=== PATIENT | male | born 1995 ===

== ENCOUNTER 2020-04-05 01:37 | Inpatient (IN) | payer MEDICAID ==
[~2020-04-05] VITALS: Ht 154.9 cm; Wt 86.0 kg
[2020-04-05] MEDS ORDERED: MYCO500T PO (01:57)
[2020-04-05] MEDS ORDERED: CLON1PAT2 PO (01:58)
[2020-04-05] MEDS ORDERED: LEVO50CA4 PO (01:59)
[2020-04-05] MEDS ORDERED: ESCI5TAB7 PO (02:00)
[2020-04-05] MEDS ORDERED: SODIUM CHLORIDE FLUSH 10ML SYR IVF ONE (02:00)
[2020-04-05] MEDS ORDERED: MIRT-34 PO (02:01)
[2020-04-05] MEDS ORDERED: METO25TA4 PO (02:01)
[2020-04-05] MEDS ORDERED: ESOM40SU PO (02:02)
[2020-04-05] MEDS ORDERED: [UNRECOGNIZED DRUG - CODE] PO (02:03)
--- NOTE | 2020-04-05 02:05 | NUR ---
PT FROM [facility] BY HELICOPTER, PT HAD GONE TO ER WITH C/O WEAKNESS AND FEVER X 1 DAY, PT HAS 20 G TO RIGHT AC WITH VANCO 2 GM AND HAD ROCEPHIN IN [facility] ER AND 1 L NS AND 1 L LR, PT ALSO HAD TYLENOL THERE.
[2020-04-05 02:25] LABS: MD YES; MEAN CORPUSCULAR HEMOGLOBIN 23.7 pg (27.5-34.5); MEAN CORPUSCULAR HGB CONC 30.5 g/dL (33.2-36.2); MEAN PLATELET VOLUME 9.9 fL (7.4-10.4); PLATELET COUNT 403 x10^3/uL (130-400); RED BLOOD COUNT 3.15 x10^6/uL (4.38-5.82); RED CELL DISTRIBUTION WIDTH 18.3 % (9.4-14.8)
[2020-04-05 02:33] LABS: ALANINE AMINOTRANSFERASE 46 U/L (12-78); ALBUMIN 3.1 g/dL (3.4-5.0); ANION GAP 10 mmol/L (5-15); CALCIUM 6.8 mg/dL (8.5-10.1); CHLORIDE 114 mmol/L (98-107); CREATININE 8.45 mg/dL (0.7-1.3)
[2020-04-05 02:35] LABS: ALKALINE PHOSPHATASE 348 U/L (45-117); BILIRUBIN,TOTAL 0.5 mg/dL (0.2-1.0)
[2020-04-05 02:44] LABS: MICROSCOPIC AUTO
[2020-04-05 02:47] LABS: ANISOCYTOSIS 1+; BAND#(MANUAL) 1.12 x10^3/uL; BANDS%(MANUAL) 5 % (0-7); EOS#(MANUAL) 0.22 x10^3/uL (0.0-0.4); EOS% (MANUAL) 1 % (1-7); LYMPH#(MANUAL) 0.67 x10^3/uL (1-3.4); LYMPHS% (MANUAL) 3 % (22-44); MONOS#(MANUAL) 0.45 x10^3/uL (0.3-2.7); MONOS% (MANUAL) 2 % (2-9); SEG#(MANUAL) 19.85 x10^3/uL (1.8-6.8); SEGS% (MANUAL) 89 % (42-75)
[2020-04-05 02:48] LABS: HYPOCHROMIA 1+; MICROCYTOSIS 1+; OVALOCYTES 1+
[2020-04-05 02:49] LABS: <PLATELET ESTIMATE> ADEQUATE; LARGE PLATELETS 1+
--- NOTE | 2020-04-05 03:00 | NUR ---
PT RESTING IN NAD
[2020-04-05] MEDS ORDERED: SODIUM CHLORIDE 0.9% 1,000 ML IV ONE (03:30)
--- NOTE | 2020-04-05 04:24 | NUR ---
REPORT TO ALDA PT TO FLOOR WITH TECH
[2020-04-05] MEDS ORDERED: LACTATED RINGERS 1,000 ML IV SCH (04:30)
[2020-04-05] MEDS ORDERED: PHARMACY MAY ADJ FOR RENAL FX MC PRN (04:30)
[2020-04-05] MEDS ORDERED: hydrALAzine 20 MG/ML, 1ML IVPush PRN (04:30)
[2020-04-05] MEDS ORDERED: DIPHENHYDRAMINE 25 MG CAPSULE PO PRN (04:30)
[2020-04-05] MEDS ORDERED: VANCOMYCIN PER PHARMACY MC PRN (04:30)
[2020-04-05] MEDS ORDERED: PHARMACOKINETIC CONSULTATION MC ONE (05:00)
[2020-04-05] MEDS: CLONIDINE MC SCH ×3 (05:00→21:00)
[2020-04-05] MEDS ORDERED: VANCOMYCIN 1,700 MG in SODIUM CHLORIDE 0.9% 250 ML IV ONE (05:00)
[2020-04-05] MEDS ORDERED: PHARMACOKINETIC MONITORING MC PRN (05:00)
[2020-04-05] MEDS: HEPARIN 5,000 UNITS/ML, 1ML SQ SCH ×3 (05:20→20:25)
[2020-04-05] MEDS: PIPERACILLIN/TAZO/PMX 2.25GM 50 ML IV SCH ×4 (05:22→23:57)
[2020-04-05 05:43] LABS: CHOL/HDL RATIO 4.7; CHOLESTEROL, TOTAL 151 mg/dL (140-239); HDL CHOL % 21 % (26-37); HDL CHOLESTEROL (DIRECT) 32 mg/dL (40-60); LDL CHOLESTEROL,CALCULATED 70 mg/dL (54-169); LDL/HDL RATIO 2.2 (0.5-3.0); TRIGLYCERIDES 244 mg/dL (50-200); TROPONIN I < 0.015 ng/mL (0.000-0.045); VLDL CHOLESTEROL 49 mg/dL (0-25)
[2020-04-05] MEDS ORDERED: CALCIUM GLUCONATE 9.2 MEQ in SODIUM CHLORIDE 0.9% 100 ML IV ONE (06:30)
[2020-04-05] MEDS ORDERED: MAGNESIUM SULFATE PMX 2GM/50ML 50 ML IV ONE (06:30)
[2020-04-05] MEDS: LACTATED RINGERS 1,000 ML IV SCH ×2 (06:37→14:17)
[2020-04-05 07:40] VITALS: BP 124/75
[2020-04-05 08:17] LABS: MICROSCOPIC AUTO
[2020-04-05] MEDS ORDERED: METOPROLOL TARTRATE 25 MG TAB PO SCH (09:00)
[2020-04-05] MEDS: PANTOPRAZOLE 40MG TABLET PO SCH (09:14)
[2020-04-05] MEDS: LEVOTHYROXINE 50 MCG TABLET PO SCH (09:14)
[2020-04-05] MEDS: ESCITALOPRAM 10MG TABLET PO SCH (09:15)
[2020-04-05] MEDS: MIRTAZAPINE 15 MG TABLET PO SCH (09:15)
[2020-04-05] MEDS: DIPHENHYDRAMINE 50 MG/ML, 1ML IVPush SCH ×3 (09:19→20:25)
[2020-04-05 10:56] LABS: TROPONIN I < 0.015 ng/mL (0.000-0.045)
[2020-04-05 12:20] VITALS: BP 129/75
[2020-04-05] MEDS: ARANESP 100 MCG/ML **ESRD SQ SCH (12:53)
[2020-04-05 13:37] LABS: RAPID INFLUENZA A Negative (Negative); RAPID INFLUENZA B Negative (Negative)
[2020-04-05 19:13] VITALS: BP 128/78
[2020-04-06] MEDS: LACTATED RINGERS 1,000 ML IV SCH ×2 (00:30→05:21)
[2020-04-06 02:24] VITALS: BP 124/73
[2020-04-06] MEDS: DIPHENHYDRAMINE 50 MG/ML, 1ML IVPush SCH ×4 (02:34→21:51)
[2020-04-06] MEDS: CLONIDINE MC SCH ×3 (05:00→11:21)
[2020-04-06] MEDS: HEPARIN 5,000 UNITS/ML, 1ML SQ SCH ×3 (05:18→21:53)
[2020-04-06] MEDS: PIPERACILLIN/TAZO/PMX 2.25GM 50 ML IV SCH ×4 (05:18→23:19)
[2020-04-06 05:59] LABS: MEAN CORPUSCULAR HEMOGLOBIN 24.1 pg (27.5-34.5); PLATELET COUNT 375 x10^3/uL (130-400); RED BLOOD COUNT 3.02 x10^6/uL (4.38-5.82); RED CELL DISTRIBUTION WIDTH 18.8 % (9.4-14.8)
[2020-04-06 06:14] LABS: ANION GAP 11 mmol/L (5-15); CALCIUM 8.3 mg/dL (8.5-10.1); CHLORIDE 115 mmol/L (98-107)
[2020-04-06 06:20] LABS: % IRON SATURATION 4 % (20-55); ALKALINE PHOSPHATASE 288 U/L (45-117); CREATININE 6.67 mg/dL (0.7-1.3); IRON LEVEL 19 mcg/dL (65-175); TOTAL IRON BINDING CAPACITY 441 mcg/dL (250-450)
[2020-04-06 06:37] LABS: MD YES
[2020-04-06 06:38] LABS: ANISOCYTOSIS 1+; BAND#(MANUAL) 0.28 x10^3/uL; BANDS%(MANUAL) 1 % (0-7); EOS% (MANUAL) 5 % (1-7); HYPOCHROMIA 1+; LYMPH#(MANUAL) 3.64 x10^3/uL (1-3.4); LYMPHS% (MANUAL) 13 % (22-44); MICROCYTOSIS 1+; MONOS#(MANUAL) 0.28 x10^3/uL (0.3-2.7); MONOS% (MANUAL) 1 % (2-9); PMNS WITH VACUOLES 1+; SEGS% (MANUAL) 80 % (42-75)
[2020-04-06 06:39] LABS: OVALOCYTES 1+; POLYCHROMASIA 1+
[2020-04-06 06:40] LABS: <PLATELET ESTIMATE> ADEQUATE; <PLT MORPHOLOGY> NORMAL PLT MORPH; ECHINOCYTES 1+
[2020-04-06 07:44] VITALS: BP 125/72
[2020-04-06] MEDS: ESCITALOPRAM 10MG TABLET PO SCH (08:37)
[2020-04-06] MEDS: PANTOPRAZOLE 40MG TABLET PO SCH (08:37)
[2020-04-06] MEDS: LEVOTHYROXINE 50 MCG TABLET PO SCH (08:37)
[2020-04-06] MEDS: METOPROLOL TARTRATE 25 MG TAB PO SCH ×2 (08:37→21:51)
[2020-04-06] MEDS: SODIUM BICARBONATE 650 MG TABLET PO SCH ×2 (08:37→21:52)
[2020-04-06] MEDS: IRON SUCROSE COMPLEX 100MG/5ML IV SCH (08:38)
[2020-04-06] MEDS: methylPREDNISolone SOD SUCC 40 MG/ML IV SCH ×3 (08:38→21:51)
[2020-04-06] MEDS: MIRTAZAPINE 15 MG TABLET PO SCH (08:38)
[2020-04-06] MEDS: GENTAMICIN CRM 0.1%, 30GM TP SCH ×2 (10:45→21:00)
[2020-04-06 13:40] VITALS: BP 118/71
[2020-04-06] MEDS ORDERED: CLON0.1T22 PO (14:36)
[2020-04-06 18:27] VITALS: BP 137/78
[2020-04-07 01:12] VITALS: BP 141/78
[2020-04-07] MEDS: PIPERACILLIN/TAZO/PMX 2.25GM 50 ML IV SCH ×6 (03:15→23:55)
[2020-04-07] MEDS: DIPHENHYDRAMINE 50 MG/ML, 1ML IVPush SCH ×5 (04:09→23:56)
[2020-04-07] MEDS: methylPREDNISolone SOD SUCC 40 MG/ML IV SCH ×5 (04:09→23:56)
[2020-04-07 05:34] LABS: ALBUMIN 3.1 g/dL (3.4-5.0); ANION GAP 9 mmol/L (5-15); CALCIUM 8.4 mg/dL (8.5-10.1); CHLORIDE 113 mmol/L (98-107); CREATININE 5.91 mg/dL (0.7-1.3)
[2020-04-07 05:38] LABS: MEAN PLATELET VOLUME 9.9 fL (7.4-10.4); PLATELET COUNT 434 x10^3/uL (130-400); RED BLOOD COUNT 2.97 x10^6/uL (4.38-5.82); RED CELL DISTRIBUTION WIDTH 18.5 % (9.4-14.8)
[2020-04-07] MEDS: HEPARIN 5,000 UNITS/ML, 1ML SQ SCH ×3 (06:00→23:56)
[2020-04-07 06:15] LABS: MD YES
[2020-04-07 06:17] LABS: ANISOCYTOSIS 1+; BANDS%(MANUAL) 2 % (0-7); EOS% (MANUAL) 1 % (1-7); LYMPH#(MANUAL) 2.77 x10^3/uL (1-3.4); LYMPHS% (MANUAL) 14 % (22-44); METAMYELOCYTES% (MANUAL) 1 % (0-1); MICROCYTOSIS 1+; MONOS#(MANUAL) 0.59 x10^3/uL (0.3-2.7); MONOS% (MANUAL) 3 % (2-9); OVALOCYTES 1+; POLYCHROMASIA 1+; SEG#(MANUAL) 15.64 x10^3/uL (1.8-6.8); SEGS% (MANUAL) 79 % (42-75)
[2020-04-07 06:18] LABS: <PLATELET ESTIMATE> INCREASED; LARGE PLATELETS 1+; SCHISTOCYTES 1+; SMUDGE CELLS 1+
[2020-04-07 07:33] VITALS: BP 125/73
[2020-04-07] MEDS: CALCITRIOL 0.25 MCG CAPSULE PO SCH (08:26)
[2020-04-07] MEDS: METOPROLOL TARTRATE 25 MG TAB PO SCH ×2 (08:26→23:55)
[2020-04-07] MEDS: SODIUM BICARBONATE 650 MG TABLET PO SCH ×2 (08:26→23:54)
[2020-04-07] MEDS: PANTOPRAZOLE 40MG TABLET PO SCH (08:26)
[2020-04-07] MEDS: MIRTAZAPINE 15 MG TABLET PO SCH (08:27)
[2020-04-07] MEDS: LEVOTHYROXINE 50 MCG TABLET PO SCH (08:27)
[2020-04-07] MEDS: IRON SUCROSE COMPLEX 100MG/5ML IV SCH (08:27)
[2020-04-07] MEDS: ESCITALOPRAM 10MG TABLET PO SCH (08:27)
[2020-04-07] MEDS: GENTAMICIN CRM 0.1%, 30GM TP SCH (08:28)
[2020-04-07 15:01] VITALS: BP 130/79
[2020-04-07 18:46] VITALS: BP 146/78
[2020-04-07 23:50] VITALS: BP 128/87
[2020-04-08 00:48] VITALS: BP 149/82
[2020-04-08] MEDS: DIPHENHYDRAMINE 50 MG/ML, 1ML IVPush SCH (03:36)
[2020-04-08 04:51] LABS: MEAN CORPUSCULAR HEMOGLOBIN 23.8 pg (27.5-34.5); MEAN CORPUSCULAR HGB CONC 30.3 g/dL (33.2-36.2); MEAN PLATELET VOLUME 9.8 fL (7.4-10.4); PLATELET COUNT 551 x10^3/uL (130-400); RED BLOOD COUNT 3.38 x10^6/uL (4.38-5.82); RED CELL DISTRIBUTION WIDTH 18.4 % (9.4-14.8)
[2020-04-08 05:01] LABS: ANION GAP 12 mmol/L (5-15); CALCIUM 8.8 mg/dL (8.5-10.1); CHLORIDE 109 mmol/L (98-107)
[2020-04-08 05:04] LABS: CREATININE 5.87 mg/dL (0.7-1.3)
[2020-04-08 05:41] LABS: MD YES
[2020-04-08 05:42] LABS: BAND#(MANUAL) 1.91 x10^3/uL; BANDS%(MANUAL) 6 % (0-7); LYMPHS% (MANUAL) 22 % (22-44); METAMYELOCYTES# (MANUAL) 0.32 x10^3/uL (0-0); METAMYELOCYTES% (MANUAL) 1 % (0-1); MONOS#(MANUAL) 2.54 x10^3/uL (0.3-2.7); MONOS% (MANUAL) 8 % (2-9); MYELOCYTES# (MANUAL) 0.32 x10^3/uL (0-0); MYELOCYTES% (MANUAL) 1 % (0-0); REACTIVE LYMPHS # (MANUAL) 0.64 x10^3/uL (0-0); REACTIVE LYMPHS % (MANUAL) 2 % (0-0); SEG#(MANUAL) 19.08 x10^3/uL (1.8-6.8); SEGS% (MANUAL) 60 % (42-75)
[2020-04-08 05:44] LABS: ANISOCYTOSIS 1+; ECHINOCYTES 1+; HYPOCHROMIA 1+; MICROCYTOSIS 1+; OVALOCYTES 1+; POLYCHROMASIA 1+
[2020-04-08 05:46] LABS: <PLATELET ESTIMATE> INCREASED; <PLT MORPHOLOGY> NORMAL PLT MORPH
[2020-04-08] MEDS: methylPREDNISolone SOD SUCC 40 MG/ML IV SCH (05:58)
[2020-04-08 07:43] VITALS: BP 157/105
[2020-04-08] MEDS: IRON SUCROSE COMPLEX 100MG/5ML IV SCH (10:27)
[2020-04-08] MEDS: PENICILLIN VK 500MG TABLET PO SCH ×2 (10:28→23:12)
[2020-04-08] MEDS: CALCITRIOL 0.25 MCG CAPSULE PO SCH (10:28)
[2020-04-08] MEDS: HEPARIN 5,000 UNITS/ML, 1ML SQ SCH ×2 (10:28→18:18)
[2020-04-08] MEDS: MIRTAZAPINE 15 MG TABLET PO SCH (10:28)
[2020-04-08] MEDS: PANTOPRAZOLE 40MG TABLET PO SCH (10:29)
[2020-04-08] MEDS: METOPROLOL TARTRATE 25 MG TAB PO SCH ×2 (10:29→23:12)
[2020-04-08] MEDS: SODIUM BICARBONATE 650 MG TABLET PO SCH ×2 (10:29→23:12)
[2020-04-08] MEDS: LEVOTHYROXINE 50 MCG TABLET PO SCH (10:29)
[2020-04-08] MEDS: ESCITALOPRAM 10MG TABLET PO SCH (10:29)
[2020-04-08] MEDS: GENTAMICIN CRM 0.1%, 30GM TP SCH (10:30)
[2020-04-08] MEDS: ASPIRIN 81 MG TABLET CHEW PO SCH (10:34)
[2020-04-08 11:55] VITALS: BP 139/89
[2020-04-08 19:45] VITALS: BP 151/89
[2020-04-09 02:01] VITALS: BP 160/96
[2020-04-09] MEDS: HEPARIN 5,000 UNITS/ML, 1ML SQ SCH ×3 (02:46→17:16)
[2020-04-09 05:27] LABS: MEAN CORPUSCULAR HGB CONC 30.3 g/dL (33.2-36.2); MEAN PLATELET VOLUME 9.6 fL (7.4-10.4); PLATELET COUNT 535 x10^3/uL (130-400); RED BLOOD COUNT 3.17 x10^6/uL (4.38-5.82)
[2020-04-09 05:37] LABS: ANION GAP 10 mmol/L (5-15); CALCIUM 8.2 mg/dL (8.5-10.1); CHLORIDE 109 mmol/L (98-107); MD YES
[2020-04-09 05:38] LABS: CREATININE 5.49 mg/dL (0.7-1.3)
[2020-04-09 06:01] LABS: METAMYELOCYTES# (MANUAL) 0.46 x10^3/uL (0-0); METAMYELOCYTES% (MANUAL) 1 % (0-1); MYELOCYTES# (MANUAL) 0.46 x10^3/uL (0-0); MYELOCYTES% (MANUAL) 1 % (0-0)
[2020-04-09 06:02] LABS: ANISOCYTOSIS 1+; BAND#(MANUAL) 1.85 x10^3/uL; BANDS%(MANUAL) 4 % (0-7); HYPOCHROMIA 1+; LYMPH#(MANUAL) 16.67 x10^3/uL (1-3.4); LYMPHS% (MANUAL) 36 % (22-44); MICROCYTOSIS 1+; MONOS#(MANUAL) 4.63 x10^3/uL (0.3-2.7); MONOS% (MANUAL) 10 % (2-9); POLYCHROMASIA 1+; SEG#(MANUAL) 22.22 x10^3/uL (1.8-6.8); SEGS% (MANUAL) 48 % (42-75)
[2020-04-09 06:03] LABS: ECHINOCYTES 1+; OVALOCYTES 1+
[2020-04-09 06:05] LABS: <PLATELET ESTIMATE> INCREASED; <PLT MORPHOLOGY> NORMAL PLT MORPH
[2020-04-09 06:59] VITALS: BP 144/91
[2020-04-09] MEDS: ONDANSETRON 2MG/ML, 2ML IVPush PRN (07:30)
[2020-04-09] MEDS: CALCITRIOL 0.25 MCG CAPSULE PO SCH (08:56)
[2020-04-09] MEDS: PANTOPRAZOLE 40MG TABLET PO SCH (08:56)
[2020-04-09] MEDS: PENICILLIN VK 500MG TABLET PO SCH ×2 (08:56→20:12)
[2020-04-09] MEDS: SODIUM BICARBONATE 650 MG TABLET PO SCH (08:56)
[2020-04-09] MEDS: LEVOTHYROXINE 50 MCG TABLET PO SCH (08:57)
[2020-04-09] MEDS: IRON SUCROSE COMPLEX 100MG/5ML IV SCH (08:57)
[2020-04-09] MEDS: METOPROLOL TARTRATE 25 MG TAB PO SCH ×2 (08:57→20:12)
[2020-04-09] MEDS: ESCITALOPRAM 10MG TABLET PO SCH (08:57)
[2020-04-09] MEDS: MIRTAZAPINE 15 MG TABLET PO SCH (08:57)
[2020-04-09] MEDS: ASPIRIN 81 MG TABLET CHEW PO SCH (08:57)
[2020-04-09] MEDS: GENTAMICIN CRM 0.1%, 30GM TP SCH (09:00)
[2020-04-09 12:27] LABS: CLOSTRIDIUM DIFFICILE ANTIGEN NEGATIVE; CLOSTRIDIUM DIFFICILE TOXIN NEGATIVE (Negative)
[2020-04-09 13:07] VITALS: BP 139/89
[2020-04-09 18:44] VITALS: BP 121/66
[2020-04-10 01:29] VITALS: BP 136/83
[2020-04-10] MEDS: HEPARIN 5,000 UNITS/ML, 1ML SQ SCH ×3 (02:05→17:24)
[2020-04-10 06:27] LABS: MEAN CORPUSCULAR HEMOGLOBIN 24.2 pg (27.5-34.5); MEAN CORPUSCULAR HGB CONC 30.2 g/dL (33.2-36.2); MEAN PLATELET VOLUME 9.8 fL (7.4-10.4); PLATELET COUNT 581 x10^3/uL (130-400); RED BLOOD COUNT 3.37 x10^6/uL (4.38-5.82)
[2020-04-10 06:36] LABS: ALBUMIN 3.3 g/dL (3.4-5.0); ANION GAP 11 mmol/L (5-15); CHLORIDE 108 mmol/L (98-107); CREATININE 4.99 mg/dL (0.7-1.3)
[2020-04-10 06:39] LABS: ALBUMIN 3.3 g/dL (3.4-5.0); ANION GAP 11 mmol/L (5-15); CALCIUM 8.1 mg/dL (8.5-10.1); CHLORIDE 108 mmol/L (98-107)
[2020-04-10 06:43] LABS: ALANINE AMINOTRANSFERASE 156 U/L (12-78); ALKALINE PHOSPHATASE 288 U/L (45-117); BILIRUBIN,TOTAL 0.5 mg/dL (0.2-1.0); CREATININE 4.98 mg/dL (0.7-1.3); TOTAL PROTEIN 7.2 g/dL (6.4-8.2)
[2020-04-10] MEDS ORDERED: POTASSIUM CHLORIDE 20 MEQ TAB.ER.PRT PO ONE (08:00)
[2020-04-10 08:18] LABS: MD YES
[2020-04-10 08:22] LABS: BANDS%(MANUAL) 2 % (0-7); EOS#(MANUAL) 4.03 x10^3/uL (0.0-0.4); EOS% (MANUAL) 9 % (1-7); LYMPH#(MANUAL) 12.54 x10^3/uL (1-3.4); LYMPHS% (MANUAL) 28 % (22-44); METAMYELOCYTES% (MANUAL) 2 % (0-1); MONOS#(MANUAL) 4.03 x10^3/uL (0.3-2.7); MONOS% (MANUAL) 9 % (2-9); SEGS% (MANUAL) 50 % (42-75)
[2020-04-10 08:23] LABS: <PLATELET ESTIMATE> INCREASED; <PLT MORPHOLOGY> NORMAL PLT MORPH; ANISOCYTOSIS 1+; ECHINOCYTES 1+; HYPOCHROMIA 1+; MICROCYTOSIS 1+; OVALOCYTES 1+; POLYCHROMASIA 1+
[2020-04-10 08:27] LABS: SMUDGE CELLS 1+
[2020-04-10] MEDS: GENTAMICIN CRM 0.1%, 30GM TP SCH (09:00)
[2020-04-10] MEDS: IRON SUCROSE COMPLEX 100MG/5ML IV SCH (09:11)
[2020-04-10] MEDS: MIRTAZAPINE 15 MG TABLET PO SCH (09:11)
[2020-04-10] MEDS: CALCITRIOL 0.25 MCG CAPSULE PO SCH (09:11)
[2020-04-10] MEDS: ASPIRIN 81 MG TABLET CHEW PO SCH (09:11)
[2020-04-10] MEDS: METOPROLOL TARTRATE 25 MG TAB PO SCH ×2 (09:12→20:15)
[2020-04-10] MEDS: PENICILLIN VK 500MG TABLET PO SCH ×2 (09:12→20:14)
[2020-04-10] MEDS: ESCITALOPRAM 10MG TABLET PO SCH (09:12)
[2020-04-10] MEDS: LEVOTHYROXINE 50 MCG TABLET PO SCH (09:12)
[2020-04-10] MEDS: PANTOPRAZOLE 40MG TABLET PO SCH (09:13)
[2020-04-10 09:30] VITALS: BP 144/98
[2020-04-10 09:34] LABS: C-REACTIVE PROTEIN, QUANT 1.5 mg/dL (0.02-0.49)
[2020-04-10 13:02] VITALS: BP 148/89
[2020-04-10 19:33] VITALS: BP 159/97
[2020-04-10] MEDS: DIPHENHYDRAMINE 25 MG CAPSULE PO PRN (20:15)
[2020-04-11 00:25] VITALS: BP 151/89
[2020-04-11] MEDS: HEPARIN 5,000 UNITS/ML, 1ML SQ SCH ×3 (02:12→16:57)
[2020-04-11 06:29] LABS: MEAN CORPUSCULAR HEMOGLOBIN 24.4 pg (27.5-34.5); MEAN CORPUSCULAR HGB CONC 30.4 g/dL (33.2-36.2); MEAN PLATELET VOLUME 9.8 fL (7.4-10.4); PLATELET COUNT 622 x10^3/uL (130-400); RED BLOOD COUNT 3.61 x10^6/uL (4.38-5.82); RED CELL DISTRIBUTION WIDTH 18.2 % (9.4-14.8)
[2020-04-11 06:33] VITALS: BP 135/91
[2020-04-11 06:36] LABS: % IRON SATURATION 17 % (20-55); ALBUMIN 3.3 g/dL (3.4-5.0); ANION GAP 10 mmol/L (5-15); CHLORIDE 110 mmol/L (98-107); CREATININE 4.59 mg/dL (0.7-1.3); IRON LEVEL 69 mcg/dL (65-175); TOTAL IRON BINDING CAPACITY 404 mcg/dL (250-450)
[2020-04-11 07:25] LABS: MD YES
[2020-04-11 07:28] LABS: ANISOCYTOSIS 1+; ECHINOCYTES 1+; EOS#(MANUAL) 1.75 x10^3/uL (0.0-0.4); EOS% (MANUAL) 4 % (1-7); HYPOCHROMIA 1+; LYMPHS% (MANUAL) 35 % (22-44); METAMYELOCYTES# (MANUAL) 0.44 x10^3/uL (0-0); METAMYELOCYTES% (MANUAL) 1 % (0-1); MICROCYTOSIS 1+; MONOS% (MANUAL) 8 % (2-9); OVALOCYTES 1+; POLYCHROMASIA 1+; SEG#(MANUAL) 22.72 x10^3/uL (1.8-6.8); SEGS% (MANUAL) 52 % (42-75); TEAR DROPS 1+
[2020-04-11 07:29] LABS: <PLATELET ESTIMATE> INCREASED; LARGE PLATELETS 1+
[2020-04-11] MEDS: MIRTAZAPINE 15 MG TABLET PO SCH (08:57)
[2020-04-11] MEDS: METOPROLOL TARTRATE 25 MG TAB PO SCH ×2 (08:57→21:59)
[2020-04-11] MEDS: PANTOPRAZOLE 40MG TABLET PO SCH (08:57)
[2020-04-11] MEDS: PENICILLIN VK 500MG TABLET PO SCH ×2 (08:57→22:41)
[2020-04-11] MEDS: LEVOTHYROXINE 50 MCG TABLET PO SCH (08:57)
[2020-04-11] MEDS: CALCITRIOL 0.25 MCG CAPSULE PO SCH (08:57)
[2020-04-11] MEDS: ESCITALOPRAM 10MG TABLET PO SCH (08:57)
[2020-04-11] MEDS: ASPIRIN 81 MG TABLET CHEW PO SCH (08:57)
[2020-04-11 10:09] VITALS: BP 141/90
[2020-04-11] MEDS ORDERED: NITROGLYCERIN SINGLE TAB 0.4 MG SL ONE (10:30)
[2020-04-11] MEDS ORDERED: NITROGLYCERIN 0.4 MG BOTTLE (25 TABS) SL ONE (10:30)
[2020-04-11 11:21] LABS: TROPONIN I 0.017 ng/mL (0.000-0.045)
[2020-04-11 11:53] LABS: FREE T4 (FREE THYROXINE) 0.87 ng/dL (0.76-1.46)
[2020-04-11 13:12] VITALS: BP 151/81
[2020-04-11] MEDS ORDERED: NALOXONE 0.4 MG/ML, 1ML ONE (15:34)
[2020-04-11 20:59] VITALS: BP 148/81
[2020-04-11] MEDS: GENTAMICIN CRM 0.1%, 30GM TP SCH (21:00)
[2020-04-11] MEDS ORDERED: NITROGLYCERIN 0.4 MG/SPRAY SL PRN (22:00)
[2020-04-12] VITALS (7 sets, daily range): BP systolic 114–160; BP diastolic 76–107
[2020-04-12 01:04] LABS: MICROSCOPIC AUTO
[2020-04-12] MEDS: HEPARIN 5,000 UNITS/ML, 1ML SQ SCH ×3 (01:57→22:56)
[2020-04-12 06:15] LABS: MEAN CORPUSCULAR HEMOGLOBIN 24.7 pg (27.5-34.5); MEAN CORPUSCULAR HGB CONC 30.4 g/dL (33.2-36.2); MEAN PLATELET VOLUME 9.2 fL (7.4-10.4); PLATELET COUNT 595 x10^3/uL (130-400); RED CELL DISTRIBUTION WIDTH 18.6 % (9.4-14.8)
[2020-04-12 06:23] LABS: ALBUMIN 3.3 g/dL (3.4-5.0); ANION GAP 12 mmol/L (5-15); CALCIUM 8.1 mg/dL (8.5-10.1); CHLORIDE 110 mmol/L (98-107)
[2020-04-12 06:31] LABS: ALANINE AMINOTRANSFERASE 178 U/L (12-78); ALKALINE PHOSPHATASE 404 U/L (45-117); BILIRUBIN,TOTAL 0.6 mg/dL (0.2-1.0); CREATININE 4.77 mg/dL (0.7-1.3); TOTAL PROTEIN 7.3 g/dL (6.4-8.2); TROPONIN I 0.042 ng/mL (0.000-0.045)
[2020-04-12 06:49] LABS: MD YES
[2020-04-12] MEDS: LEVOTHYROXINE 50 MCG TABLET PO SCH (06:51)
[2020-04-12 06:52] LABS: <PLATELET ESTIMATE> INCREASED; ANISOCYTOSIS 1+; ECHINOCYTES 1+; EOS#(MANUAL) 0.36 x10^3/uL (0.0-0.4); EOS% (MANUAL) 1 % (1-7); HYPOCHROMIA 1+; LYMPH#(MANUAL) 10.38 x10^3/uL (1-3.4); LYMPHS% (MANUAL) 29 % (22-44); METAMYELOCYTES# (MANUAL) 0.72 x10^3/uL (0-0); METAMYELOCYTES% (MANUAL) 2 % (0-1); MICROCYTOSIS 1+; MONOS#(MANUAL) 2.15 x10^3/uL (0.3-2.7); MONOS% (MANUAL) 6 % (2-9); MYELOCYTES# (MANUAL) 0.36 x10^3/uL (0-0); MYELOCYTES% (MANUAL) 1 % (0-0); OVALOCYTES 1+; POLYCHROMASIA 1+; SEG#(MANUAL) 21.84 x10^3/uL (1.8-6.8); SEGS% (MANUAL) 61 % (42-75)
[2020-04-12 06:53] LABS: <PLT MORPHOLOGY> NORMAL PLT MORPH; HOWELL-JOLLY BODIES 1+
[2020-04-12 06:56] LABS: SCHISTOCYTES 1+
[2020-04-12] MEDS: ASPIRIN 81 MG TABLET CHEW PO SCH (09:09)
[2020-04-12] MEDS: ESCITALOPRAM 10MG TABLET PO SCH (09:11)
[2020-04-12] MEDS: PENICILLIN VK 500MG TABLET PO SCH ×2 (09:12→22:55)
[2020-04-12] MEDS: MIRTAZAPINE 15 MG TABLET PO SCH (09:12)
[2020-04-12] MEDS: METOPROLOL TARTRATE 25 MG TAB PO SCH ×2 (09:12→22:56)
[2020-04-12] MEDS: PANTOPRAZOLE 40MG TABLET PO SCH (09:12)
[2020-04-12] MEDS: CALCITRIOL 0.25 MCG CAPSULE PO SCH (09:13)
[2020-04-12] MEDS: ARANESP 100 MCG/ML **ESRD SQ SCH (11:00)
[2020-04-12] MEDS: GENTAMICIN CRM 0.1%, 30GM TP SCH (21:00)
[2020-04-12] MEDS: ONDANSETRON 2MG/ML, 2ML IVPush PRN (23:00)
[2020-04-12] MEDS: NITROGLYCERIN 0.4 MG BOTTLE (25 TABS) SL PRN ×2 (23:10→23:17)
[2020-04-12] MEDS: morphine SULFATE 10 MG/ML, 1ML IVPush PRN (23:25)
[2020-04-13 01:04] VITALS: BP 118/77
[2020-04-13 05:44] LABS: MEAN CORPUSCULAR HGB CONC 31.4 g/dL (33.2-36.2); MEAN PLATELET VOLUME 9.4 fL (7.4-10.4); PLATELET COUNT 548 x10^3/uL (130-400); RED BLOOD COUNT 3.48 x10^6/uL (4.38-5.82); RED CELL DISTRIBUTION WIDTH 18.3 % (9.4-14.8)
[2020-04-13 06:00] LABS: ALBUMIN 3.3 g/dL (3.4-5.0); ANION GAP 10 mmol/L (5-15); CALCIUM 8.2 mg/dL (8.5-10.1); CHLORIDE 109 mmol/L (98-107); CREATININE 4.29 mg/dL (0.7-1.3)
[2020-04-13] MEDS: HEPARIN 5,000 UNITS/ML, 1ML SQ SCH ×3 (06:10→23:32)
[2020-04-13 06:21] LABS: MD YES
[2020-04-13 06:23] LABS: ANISOCYTOSIS 1+; BAND#(MANUAL) 0.98 x10^3/uL; BANDS%(MANUAL) 4 % (0-7); EOS#(MANUAL) 0.49 x10^3/uL (0.0-0.4); EOS% (MANUAL) 2 % (1-7); LYMPH#(MANUAL) 7.13 x10^3/uL (1-3.4); LYMPHS% (MANUAL) 29 % (22-44); METAMYELOCYTES# (MANUAL) 0.25 x10^3/uL (0-0); METAMYELOCYTES% (MANUAL) 1 % (0-1); MICROCYTOSIS 1+; MONOS#(MANUAL) 1.23 x10^3/uL (0.3-2.7); MONOS% (MANUAL) 5 % (2-9); MYELOCYTES# (MANUAL) 0.25 x10^3/uL (0-0); MYELOCYTES% (MANUAL) 1 % (0-0); SEG#(MANUAL) 14.27 x10^3/uL (1.8-6.8); SEGS% (MANUAL) 58 % (42-75)
[2020-04-13 06:24] LABS: HOWELL-JOLLY BODIES 1+; HYPOCHROMIA 1+; OVALOCYTES 1+; POLYCHROMASIA 1+
[2020-04-13 06:26] LABS: <PLATELET ESTIMATE> INCREASED; <PLT MORPHOLOGY> NORMAL PLT MORPH; ECHINOCYTES 1+
[2020-04-13 06:36] VITALS: BP 135/81
[2020-04-13] MEDS: ASPIRIN 81 MG TABLET CHEW PO SCH (10:19)
[2020-04-13] MEDS: ESCITALOPRAM 10MG TABLET PO SCH (10:20)
[2020-04-13] MEDS: METOPROLOL TARTRATE 25 MG TAB PO SCH ×2 (10:21→21:10)
[2020-04-13] MEDS: PENICILLIN VK 500MG TABLET PO SCH ×2 (10:21→21:10)
[2020-04-13] MEDS: MIRTAZAPINE 15 MG TABLET PO SCH (10:21)
[2020-04-13] MEDS: PANTOPRAZOLE 40MG TABLET PO SCH (10:21)
[2020-04-13] MEDS: CALCITRIOL 0.25 MCG CAPSULE PO SCH (10:21)
[2020-04-13] MEDS: LEVOTHYROXINE 50 MCG TABLET PO SCH (10:22)
[2020-04-13] MEDS ORDERED: FENTANYL PF 100 MCG/2ML ONE (10:45)
[2020-04-13] MEDS ORDERED: FLUMAZENIL 0.1 MG/1 ML, 5ML ONE (10:46)
[2020-04-13] MEDS ORDERED: MIDAZOLAM 1 MG/ML, 5ML ONE (10:46)
[2020-04-13] MEDS ORDERED: NALOXONE 1 MG/ML, 2ML ONE (10:46)
[2020-04-13] MEDS ORDERED: MAGNESIUM SULFATE PMX 4GM/100M 100 ML IVPB ONE (12:00)
[2020-04-13] MEDS ORDERED: POLYETHYLENE GLYCOL 17 GM PACKET NG ONE (12:30)
[2020-04-13 14:16] VITALS: BP 103/64
[2020-04-13 20:00] VITALS: BP 129/80
[2020-04-13] MEDS: GENTAMICIN CRM 0.1%, 30GM TP SCH (21:00)
[2020-04-14 01:09] VITALS: BP 138/88
[2020-04-14 06:05] LABS: MEAN CORPUSCULAR HGB CONC 30.9 g/dL (33.2-36.2); MEAN PLATELET VOLUME 9.5 fL (7.4-10.4); PLATELET COUNT 530 x10^3/uL (130-400); RED BLOOD COUNT 3.37 x10^6/uL (4.38-5.82); RED CELL DISTRIBUTION WIDTH 18.7 % (9.4-14.8)
[2020-04-14 06:17] LABS: ALANINE AMINOTRANSFERASE 186 U/L (12-78); ALBUMIN 3.2 g/dL (3.4-5.0); ANION GAP 9 mmol/L (5-15); CALCIUM 8.8 mg/dL (8.5-10.1); CHLORIDE 108 mmol/L (98-107); CREATININE 4.42 mg/dL (0.7-1.3)
[2020-04-14 06:19] LABS: ALKALINE PHOSPHATASE 460 U/L (45-117); BILIRUBIN,TOTAL 0.5 mg/dL (0.2-1.0); TOTAL PROTEIN 7.1 g/dL (6.4-8.2)
[2020-04-14 06:40] VITALS: BP 130/76
[2020-04-14 07:29] LABS: MD YES
[2020-04-14 07:30] LABS: ANISOCYTOSIS 1+; EOS#(MANUAL) 0.16 x10^3/uL (0.0-0.4); EOS% (MANUAL) 1 % (1-7); HYPOCHROMIA 1+; LYMPHS% (MANUAL) 29 % (22-44); METAMYELOCYTES# (MANUAL) 0.16 x10^3/uL (0-0); METAMYELOCYTES% (MANUAL) 1 % (0-1); MICROCYTOSIS 1+; MONOS#(MANUAL) 0.32 x10^3/uL (0.3-2.7); MONOS% (MANUAL) 2 % (2-9); SEG#(MANUAL) 10.85 x10^3/uL (1.8-6.8); SEGS% (MANUAL) 67 % (42-75)
[2020-04-14] MEDS: HEPARIN 5,000 UNITS/ML, 1ML SQ SCH ×3 (07:30→22:08)
[2020-04-14 07:31] LABS: <PLATELET ESTIMATE> INCREASED; <PLT MORPHOLOGY> NORMAL PLT MORPH; ECHINOCYTES 1+; HOWELL-JOLLY BODIES 1+; OVALOCYTES 1+; POLYCHROMASIA 1+
[2020-04-14] MEDS: ASPIRIN 81 MG TABLET CHEW PO SCH (08:52)
[2020-04-14] MEDS: METOPROLOL TARTRATE 25 MG TAB PO SCH ×2 (08:52→22:08)
[2020-04-14] MEDS: PANTOPRAZOLE 40MG TABLET PO SCH (08:53)
[2020-04-14] MEDS: ESCITALOPRAM 10MG TABLET PO SCH (08:53)
[2020-04-14] MEDS: PENICILLIN VK 500MG TABLET PO SCH ×2 (08:53→22:08)
[2020-04-14] MEDS: CALCITRIOL 0.25 MCG CAPSULE PO SCH (08:53)
[2020-04-14] MEDS: MIRTAZAPINE 15 MG TABLET PO SCH (08:53)
[2020-04-14] MEDS: LEVOTHYROXINE 50 MCG TABLET PO SCH (08:54)
[2020-04-14 12:42] VITALS: BP 119/76
[2020-04-14] MEDS ORDERED: LACTULOSE 20 GM/30 ML UDC ONE (15:26)
[2020-04-14] MEDS: LACTULOSE 20 GM/30 ML UDC PO SCH (15:26)
[2020-04-14 19:10] VITALS: BP 113/67
[2020-04-14] MEDS ORDERED: MORPHINE SULFATE 4 MG/ML, 1ML ONE (20:15)
[2020-04-14] MEDS: morphine SULFATE 10 MG/ML, 1ML IVPush PRN (20:19)
[2020-04-14] MEDS: GENTAMICIN CRM 0.1%, 30GM TP SCH (21:00)
[2020-04-15 01:59] VITALS: BP 128/70
[2020-04-15 05:54] LABS: MEAN CORPUSCULAR HEMOGLOBIN 25.9 pg (27.5-34.5); MEAN CORPUSCULAR HGB CONC 30.7 g/dL (33.2-36.2); MEAN PLATELET VOLUME 9.6 fL (7.4-10.4); PLATELET COUNT 479 x10^3/uL (130-400); RED CELL DISTRIBUTION WIDTH 18.8 % (9.4-14.8)
[2020-04-15 06:03] LABS: ALBUMIN 3.1 g/dL (3.4-5.0); ANION GAP 10 mmol/L (5-15); CALCIUM 8.7 mg/dL (8.5-10.1); CHLORIDE 106 mmol/L (98-107)
[2020-04-15 06:10] LABS: ALANINE AMINOTRANSFERASE 180 U/L (12-78); ALKALINE PHOSPHATASE 481 U/L (45-117); BILIRUBIN,TOTAL 0.5 mg/dL (0.2-1.0); CREATININE 4.69 mg/dL (0.7-1.3); TOTAL PROTEIN 6.9 g/dL (6.4-8.2)
[2020-04-15 06:26] LABS: MD YES
[2020-04-15 06:27] LABS: BAND#(MANUAL) 0.15 x10^3/uL; BANDS%(MANUAL) 1 % (0-7); EOS#(MANUAL) 0.46 x10^3/uL (0.0-0.4); EOS% (MANUAL) 3 % (1-7); LYMPH#(MANUAL) 5.32 x10^3/uL (1-3.4); LYMPHS% (MANUAL) 35 % (22-44); METAMYELOCYTES# (MANUAL) 0.15 x10^3/uL (0-0); METAMYELOCYTES% (MANUAL) 1 % (0-1); MONOS#(MANUAL) 0.76 x10^3/uL (0.3-2.7); MONOS% (MANUAL) 5 % (2-9); SEG#(MANUAL) 8.36 x10^3/uL (1.8-6.8); SEGS% (MANUAL) 55 % (42-75)
[2020-04-15 06:28] LABS: ANISOCYTOSIS 1+; ECHINOCYTES 1+; HOWELL-JOLLY BODIES 1+; HYPOCHROMIA 1+; MICROCYTOSIS 1+; OVALOCYTES 1+; POLYCHROMASIA 1+
[2020-04-15 06:30] LABS: <PLATELET ESTIMATE> INCREASED; <PLT MORPHOLOGY> NORMAL PLT MORPH
[2020-04-15] MEDS: HEPARIN 5,000 UNITS/ML, 1ML SQ SCH ×3 (06:30→22:59)
[2020-04-15 07:28] VITALS: BP 125/75
[2020-04-15] MEDS ORDERED: CHLORHEXIDINE 15 ML UDC MM ONE (09:00)
[2020-04-15] MEDS: GENTAMICIN CRM 0.1%, 30GM TP SCH (09:00)
[2020-04-15] MEDS ORDERED: BUPIVACAINE/PF 0.5% ONE (09:08)
[2020-04-15] MEDS ORDERED: EPINEPHRINE 1 MG/ML, 1ML ONE (09:08)
[2020-04-15] MEDS ORDERED: HEPARIN 1,000 UNITS/ML, 10ML ONE (09:59)
[2020-04-15] MEDS: PANTOPRAZOLE 40MG TABLET PO SCH (11:58)
[2020-04-15] MEDS: PENICILLIN VK 500MG TABLET PO SCH ×2 (11:58→22:59)
[2020-04-15] MEDS: LACTULOSE 20 GM/30 ML UDC PO SCH ×2 (11:58→22:59)
[2020-04-15] MEDS: LEVOTHYROXINE 50 MCG TABLET PO SCH (11:58)
[2020-04-15] MEDS: MIRTAZAPINE 15 MG TABLET PO SCH (11:58)
[2020-04-15] MEDS: TORSEMIDE 20 MG TABLET PO SCH (11:58)
[2020-04-15] MEDS: ASPIRIN 81 MG TABLET CHEW PO SCH (11:58)
[2020-04-15] MEDS: METOPROLOL TARTRATE 25 MG TAB PO SCH ×2 (11:59→22:59)
[2020-04-15] MEDS: CALCITRIOL 0.25 MCG CAPSULE PO SCH (11:59)
[2020-04-15] MEDS: ESCITALOPRAM 10MG TABLET PO SCH (11:59)
[2020-04-15 15:36] VITALS: BP 115/76
[2020-04-15] MEDS ORDERED: LABETALOL 5MG/ML, 20ML IV PRN (18:30)
[2020-04-15] MEDS ORDERED: OXYcodone 5 MG/5 ML ORAL.SOL UDC PO PRN (18:30)
[2020-04-15] MEDS ORDERED: ONDANSETRON 2MG/ML, 2ML IVPush PRN (18:30)
[2020-04-15] MEDS ORDERED: EPHEDRINE 50 MG/ML, 1ML IVPush PRN (18:30)
[2020-04-15] MEDS ORDERED: PROMETHAZINE 25 MG/ML, 1ML IVPush PRN (18:30)
[2020-04-15] MEDS ORDERED: hydrALAzine 20 MG/ML, 1ML IV PRN (18:30)
[2020-04-15] MEDS ORDERED: MIDAZOLAM 1 MG/ML, 2ML ONE (19:21)
[2020-04-15] MEDS ORDERED: FENTANYL PF 100 MCG/2ML ONE ×3 (19:21→20:44)
[2020-04-15] MEDS ORDERED: CEFAZOLIN 1,000 MG ONE (19:49)
[2020-04-15] MEDS ORDERED: ONDANSETRON 2MG/ML, 2ML ONE (19:49)
[2020-04-15] MEDS ORDERED: ROCURONIUM 10MG/ML,5ML ONE (19:49)
[2020-04-15] MEDS ORDERED: NEOSTIGMINE 1 MG/ML, 10ML ONE (19:49)
[2020-04-15] MEDS ORDERED: PROPOFOL 10 MG/ML, 20ML ONE (19:49)
[2020-04-15] MEDS ORDERED: GLYCOPYRROLATE 0.2MG/1ML, 5ML ONE (19:49)
[2020-04-15] MEDS ORDERED: DEXAMETHASONE 4 MG/ML, 5ML ONE (19:49)
[2020-04-15] MEDS ORDERED: PHENYLEPHRINE 10 MG/ML ONE (19:49)
[2020-04-15] MEDS ORDERED: SUCCINYLCHOLINE 20 MG/ML, 10ML ONE (19:49)
[2020-04-15] MEDS ORDERED: LIDOCAINE-MPF 2% ,5ML ONE (19:50)
[2020-04-15] MEDS ORDERED: SUGAMMADEX 200 MG/2 ML IVPush ONE (19:51)
[2020-04-15] MEDS ORDERED: OXYcodone 5 MG/5 ML ORAL.SOL UDC ONE (20:44)
[2020-04-15] MEDS: FENTANYL PF 100 MCG/2ML IV PRN ×2 (20:55→21:00)
[2020-04-15] MEDS ORDERED: HYDROmorphone 1 MG/ML, 1ML INJ ONE (21:17)
[2020-04-15] MEDS: HYDROmorphone 1 MG/ML, 1ML INJ IVPush PRN ×2 (21:21→21:30)
[2020-04-15 22:10] VITALS: BP 127/76
[2020-04-15] MEDS: morphine SULFATE 10 MG/ML, 1ML IVPush PRN (23:37)
[2020-04-15] MEDS: DIPHENHYDRAMINE 25 MG CAPSULE PO PRN (23:40)
[2020-04-16 00:18] LABS: TROPONIN I 0.024 ng/mL (0.000-0.045)
[2020-04-16 01:30] VITALS: BP 106/68
[2020-04-16] MEDS: LEVOTHYROXINE 75 MCG TABLET PO SCH (06:13)
[2020-04-16 06:29] LABS: MEAN CORPUSCULAR HEMOGLOBIN 26.2 pg (27.5-34.5); MEAN CORPUSCULAR HGB CONC 30.6 g/dL (33.2-36.2); MEAN PLATELET VOLUME 9.5 fL (7.4-10.4); PLATELET COUNT 466 x10^3/uL (130-400); RED BLOOD COUNT 3.04 x10^6/uL (4.38-5.82); RED CELL DISTRIBUTION WIDTH 20.2 % (9.4-14.8)
[2020-04-16 06:34] LABS: CHLORIDE 112 mmol/L (98-107)
[2020-04-16 06:42] LABS: ALANINE AMINOTRANSFERASE 192 U/L (12-78); ALKALINE PHOSPHATASE 483 U/L (45-117); ANION GAP 9 mmol/L (5-15); BILIRUBIN,TOTAL 0.4 mg/dL (0.2-1.0); CALCIUM 8.4 mg/dL (8.5-10.1); CREATININE 5.46 mg/dL (0.7-1.3); TOTAL PROTEIN 6.9 g/dL (6.4-8.2)
[2020-04-16 06:50] LABS: MD YES
[2020-04-16 06:52] LABS: LYMPH#(MANUAL) 0.99 x10^3/uL (1-3.4); LYMPHS% (MANUAL) 5 % (22-44); MONOS#(MANUAL) 0.59 x10^3/uL (0.3-2.7); MONOS% (MANUAL) 3 % (2-9); SEG#(MANUAL) 18.12 x10^3/uL (1.8-6.8); SEGS% (MANUAL) 92 % (42-75)
[2020-04-16 06:53] LABS: <PLATELET ESTIMATE> INCREASED; <PLT MORPHOLOGY> NORMAL PLT MORPH; ANISOCYTOSIS 1+; ECHINOCYTES 1+; HOWELL-JOLLY BODIES 1+; HYPOCHROMIA 1+; MICROCYTOSIS 1+; OVALOCYTES 1+; POLYCHROMASIA 1+
[2020-04-16 07:30] VITALS: BP 115/65
[2020-04-16] MEDS: HEPARIN 5,000 UNITS/ML, 1ML SQ SCH ×3 (08:13→22:06)
[2020-04-16] MEDS: CALCITRIOL 0.25 MCG CAPSULE PO SCH (09:45)
[2020-04-16] MEDS: LACTULOSE 20 GM/30 ML UDC PO SCH ×2 (09:45→22:09)
[2020-04-16] MEDS: MIRTAZAPINE 15 MG TABLET PO SCH (09:45)
[2020-04-16] MEDS: ASPIRIN 81 MG TABLET CHEW PO SCH (09:45)
[2020-04-16] MEDS: METOPROLOL TARTRATE 25 MG TAB PO SCH ×2 (09:46→22:07)
[2020-04-16] MEDS: PANTOPRAZOLE 40MG TABLET PO SCH (09:46)
[2020-04-16] MEDS: TORSEMIDE 20 MG TABLET PO SCH (09:47)
[2020-04-16] MEDS: ESCITALOPRAM 10MG TABLET PO SCH (09:47)
[2020-04-16] MEDS: PENICILLIN VK 500MG TABLET PO SCH ×2 (09:47→22:07)
[2020-04-16] MEDS: GENTAMICIN CRM 0.1%, 30GM TP SCH (09:49)
[2020-04-16] MEDS: OXYcodone/APAP 5/325MG TABLET PO PRN (11:09)
[2020-04-16 13:49] VITALS: BP 134/82
[2020-04-16 20:11] VITALS: BP 143/85
[2020-04-17 01:28] VITALS: BP 117/69
[2020-04-17] MEDS: LEVOTHYROXINE 75 MCG TABLET PO SCH (04:53)
[2020-04-17 05:34] LABS: MEAN CORPUSCULAR HEMOGLOBIN 26.5 pg (27.5-34.5); MEAN CORPUSCULAR HGB CONC 30.5 g/dL (33.2-36.2); MEAN PLATELET VOLUME 9.5 fL (7.4-10.4); PLATELET COUNT 468 x10^3/uL (130-400); RED BLOOD COUNT 3.12 x10^6/uL (4.38-5.82); RED CELL DISTRIBUTION WIDTH 24.1 % (9.4-14.8)
[2020-04-17 05:35] LABS: ANION GAP 11 mmol/L (5-15); CALCIUM 7.5 mg/dL (8.5-10.1); CHLORIDE 111 mmol/L (98-107); CREATININE 5.58 mg/dL (0.7-1.3)
[2020-04-17 05:52] LABS: MD YES
[2020-04-17 05:55] LABS: LYMPH#(MANUAL) 8.75 x10^3/uL (1-3.4); LYMPHS% (MANUAL) 50 % (22-44); MONOS#(MANUAL) 1.23 x10^3/uL (0.3-2.7); MONOS% (MANUAL) 7 % (2-9); SEG#(MANUAL) 7.53 x10^3/uL (1.8-6.8); SEGS% (MANUAL) 43 % (42-75)
[2020-04-17 05:57] LABS: ANISOCYTOSIS 1+
[2020-04-17 05:58] LABS: MICROCYTOSIS 1+; OVALOCYTES 1+; POLYCHROMASIA 1+
[2020-04-17 05:59] LABS: <PLATELET ESTIMATE> INCREASED; <PLT MORPHOLOGY> NORMAL PLT MORPH; ECHINOCYTES 1+; HOWELL-JOLLY BODIES 1+
[2020-04-17 07:10] VITALS: BP 114/72
[2020-04-17 07:35] LABS: FREE T4 (FREE THYROXINE) 0.75 ng/dL (0.76-1.46)
[2020-04-17] MEDS: TORSEMIDE 20 MG TABLET PO SCH (08:52)
[2020-04-17] MEDS: ASPIRIN 81 MG TABLET CHEW PO SCH (08:52)
[2020-04-17] MEDS: OXYcodone/APAP 5/325MG TABLET PO PRN (08:52)
[2020-04-17] MEDS: PENICILLIN VK 500MG TABLET PO SCH ×2 (08:52→21:12)
[2020-04-17] MEDS: HEPARIN 5,000 UNITS/ML, 1ML SQ SCH ×3 (08:52→22:47)
[2020-04-17] MEDS: CALCITRIOL 0.25 MCG CAPSULE PO SCH (08:53)
[2020-04-17] MEDS: PANTOPRAZOLE 40MG TABLET PO SCH (08:53)
[2020-04-17] MEDS: METOPROLOL TARTRATE 25 MG TAB PO SCH ×2 (08:53→21:12)
[2020-04-17] MEDS: ESCITALOPRAM 10MG TABLET PO SCH (08:53)
[2020-04-17] MEDS: MIRTAZAPINE 15 MG TABLET PO SCH (08:53)
[2020-04-17] MEDS: LACTULOSE 20 GM/30 ML UDC PO SCH (08:54)
[2020-04-17] MEDS: GENTAMICIN CRM 0.1%, 30GM TP SCH (09:00)
[2020-04-17 13:55] VITALS: BP 133/87
[2020-04-17 19:30] VITALS: BP 141/70
[2020-04-18 01:11] VITALS: BP 111/66
[2020-04-18] MEDS: LEVOTHYROXINE 75 MCG TABLET PO SCH (05:58)
[2020-04-18] MEDS: HEPARIN 5,000 UNITS/ML, 1ML SQ SCH ×3 (06:32→23:30)
[2020-04-18 07:25] LABS: MEAN CORPUSCULAR HEMOGLOBIN 26.8 pg (27.5-34.5); MEAN CORPUSCULAR HGB CONC 30.8 g/dL (33.2-36.2); MEAN PLATELET VOLUME 9.6 fL (7.4-10.4); PLATELET COUNT 572 x10^3/uL (130-400); RED BLOOD COUNT 3.24 x10^6/uL (4.38-5.82); RED CELL DISTRIBUTION WIDTH 23.1 % (9.4-14.8)
[2020-04-18 07:31] LABS: ALBUMIN 3.2 g/dL (3.4-5.0); ANION GAP 12 mmol/L (5-15); CHLORIDE 112 mmol/L (98-107)
[2020-04-18 07:33] LABS: CREATININE 5.55 mg/dL (0.7-1.3)
[2020-04-18 08:29] LABS: MD YES
[2020-04-18 08:30] LABS: BASOS#(MANUAL) 0.16 x10^3/uL (0-0.1); BASOS% (MANUAL) 1 % (0-1); EOS#(MANUAL) 0.49 x10^3/uL (0.0-0.4); EOS% (MANUAL) 3 % (1-7); LYMPHS% (MANUAL) 42 % (22-44); MONOS#(MANUAL) 1.13 x10^3/uL (0.3-2.7); MONOS% (MANUAL) 7 % (2-9); SEG#(MANUAL) 7.61 x10^3/uL (1.8-6.8); SEGS% (MANUAL) 47 % (42-75)
[2020-04-18 08:31] LABS: <PLATELET ESTIMATE> INCREASED; <PLT MORPHOLOGY> NORMAL PLT MORPH; ANISOCYTOSIS 1+; ECHINOCYTES 1+; HYPOCHROMIA 1+; MICROCYTOSIS 1+; OVALOCYTES 1+; POLYCHROMASIA 1+
[2020-04-18 08:32] LABS: HOWELL-JOLLY BODIES 1+
[2020-04-18] MEDS: GENTAMICIN CRM 0.1%, 30GM TP SCH (09:00)
[2020-04-18] MEDS ORDERED: TORSEMIDE 20 MG TABLET PO SCH (09:00)
[2020-04-18 09:41] VITALS: BP 115/74
[2020-04-18] MEDS: CALCITRIOL 0.25 MCG CAPSULE PO SCH (10:29)
[2020-04-18] MEDS: PENICILLIN VK 500MG TABLET PO SCH ×2 (10:30→21:48)
[2020-04-18] MEDS: SODIUM BICARBONATE 650 MG TABLET PO SCH ×2 (10:30→21:48)
[2020-04-18] MEDS: ASPIRIN 81 MG TABLET CHEW PO SCH (10:30)
[2020-04-18] MEDS: PANTOPRAZOLE 40MG TABLET PO SCH (10:30)
[2020-04-18] MEDS: MIRTAZAPINE 15 MG TABLET PO SCH (10:30)
[2020-04-18] MEDS: ESCITALOPRAM 10MG TABLET PO SCH (10:31)
[2020-04-18] MEDS: METOPROLOL TARTRATE 25 MG TAB PO SCH ×2 (10:31→21:47)
[2020-04-18 15:53] VITALS: BP 104/65
[2020-04-18 16:05] VITALS: BP 137/90
[2020-04-18 18:59] VITALS: BP 117/75
[2020-04-19 00:33] VITALS: BP 130/60
[2020-04-19] MEDS: LEVOTHYROXINE 75 MCG TABLET PO SCH (06:00)
[2020-04-19 06:15] LABS: MEAN CORPUSCULAR HEMOGLOBIN 26.6 pg (27.5-34.5); MEAN CORPUSCULAR HGB CONC 30.8 g/dL (33.2-36.2); MEAN PLATELET VOLUME 9.3 fL (7.4-10.4); PLATELET COUNT 629 x10^3/uL (130-400); RED BLOOD COUNT 3.37 x10^6/uL (4.38-5.82); RED CELL DISTRIBUTION WIDTH 24.3 % (9.4-14.8)
[2020-04-19 06:16] LABS: ALBUMIN 3.3 g/dL (3.4-5.0); ANION GAP 10 mmol/L (5-15); CALCIUM 8.6 mg/dL (8.5-10.1); CHLORIDE 112 mmol/L (98-107)
[2020-04-19 06:18] LABS: CREATININE 5.73 mg/dL (0.7-1.3)
[2020-04-19 06:54] LABS: MD YES
[2020-04-19 06:55] LABS: BAND#(MANUAL) 0.16 x10^3/uL; BANDS%(MANUAL) 1 % (0-7); BASOS#(MANUAL) 0.16 x10^3/uL (0-0.1); BASOS% (MANUAL) 1 % (0-1); EOS#(MANUAL) 0.31 x10^3/uL (0.0-0.4); EOS% (MANUAL) 2 % (1-7); LYMPH#(MANUAL) 3.93 x10^3/uL (1-3.4); LYMPHS% (MANUAL) 25 % (22-44); MONOS#(MANUAL) 0.94 x10^3/uL (0.3-2.7); MONOS% (MANUAL) 6 % (2-9); SEG#(MANUAL) 10.21 x10^3/uL (1.8-6.8); SEGS% (MANUAL) 65 % (42-75)
[2020-04-19 06:56] LABS: <PLATELET ESTIMATE> INCREASED; <PLT MORPHOLOGY> NORMAL PLT MORPH; ANISOCYTOSIS 1+; ECHINOCYTES 1+; HOWELL-JOLLY BODIES 1+; HYPOCHROMIA 1+; MICROCYTOSIS 1+; OVALOCYTES 1+; POLYCHROMASIA 1+
[2020-04-19 08:20] VITALS: BP 104/62
[2020-04-19] MEDS: MIRTAZAPINE 15 MG TABLET PO SCH (08:47)
[2020-04-19] MEDS: TORSEMIDE 20 MG TABLET PO SCH (08:47)
[2020-04-19] MEDS: HEPARIN 5,000 UNITS/ML, 1ML SQ SCH ×2 (08:47→16:07)
[2020-04-19] MEDS: ASPIRIN 81 MG TABLET CHEW PO SCH (08:47)
[2020-04-19] MEDS: SODIUM BICARBONATE 650 MG TABLET PO SCH ×2 (08:48→21:17)
[2020-04-19] MEDS: METOPROLOL TARTRATE 25 MG TAB PO SCH ×2 (08:48→21:32)
[2020-04-19] MEDS: PANTOPRAZOLE 40MG TABLET PO SCH (08:48)
[2020-04-19] MEDS: PENICILLIN VK 500MG TABLET PO SCH ×2 (08:48→21:17)
[2020-04-19] MEDS: CALCITRIOL 0.25 MCG CAPSULE PO SCH (08:48)
[2020-04-19] MEDS: GENTAMICIN CRM 0.1%, 30GM TP SCH (08:50)
[2020-04-19] MEDS: ESCITALOPRAM 10MG TABLET PO SCH (08:50)
[2020-04-19] MEDS: ARANESP 100 MCG/ML **ESRD SQ SCH (11:00)
[2020-04-19] MEDS: SEVELAMER CARBONATE 800MG TAB PO SCH ×3 (11:50→21:17)
[2020-04-19 13:33] VITALS: BP 146/88
[2020-04-19] MEDS: morphine SULFATE 10 MG/ML, 1ML IVPush PRN (18:57)
[2020-04-19 19:15] VITALS: BP 91/61
[2020-04-19] MEDS: OXYcodone/APAP 5/325MG TABLET PO PRN (19:25)
[2020-04-19 19:49] LABS: TROPONIN I < 0.015 ng/mL (0.000-0.045)
[2020-04-19 19:54] VITALS: BP 111/71
[2020-04-19] MEDS ORDERED: SODIUM CHLORIDE 0.9%, 250ML IVBOLUS ONE (23:30)
[2020-04-19 23:57] VITALS: BP 80/44
[2020-04-20] MEDS: HEPARIN 5,000 UNITS/ML, 1ML SQ SCH ×4 (00:32→22:50)
[2020-04-20 00:46] VITALS: BP 88/50
[2020-04-20 01:09] VITALS: BP 93/56
[2020-04-20] MEDS: LEVOTHYROXINE 75 MCG TABLET PO SCH (05:34)
[2020-04-20 06:22] LABS: MEAN CORPUSCULAR HEMOGLOBIN 26.6 pg (27.5-34.5); MEAN CORPUSCULAR HGB CONC 31.2 g/dL (33.2-36.2); MEAN PLATELET VOLUME 9.1 fL (7.4-10.4); PLATELET COUNT 581 x10^3/uL (130-400); RED BLOOD COUNT 3.41 x10^6/uL (4.38-5.82); RED CELL DISTRIBUTION WIDTH 24.9 % (9.4-14.8)
[2020-04-20 06:36] LABS: ALBUMIN 3.4 g/dL (3.4-5.0); ANION GAP 10 mmol/L (5-15); CHLORIDE 98 mmol/L (98-107); CREATININE 5.21 mg/dL (0.7-1.3)
[2020-04-20 07:11] LABS: MD YES
[2020-04-20 07:13] LABS: ANISOCYTOSIS 1+; BAND#(MANUAL) 0.41 x10^3/uL; BANDS%(MANUAL) 3 % (0-7); BASOS#(MANUAL) 0.41 x10^3/uL (0-0.1); BASOS% (MANUAL) 3 % (0-1); LYMPHS% (MANUAL) 21 % (22-44); MICROCYTOSIS 1+; MONOS#(MANUAL) 0.28 x10^3/uL (0.3-2.7); MONOS% (MANUAL) 2 % (2-9); OVALOCYTES 1+; POLYCHROMASIA 1+; SEGS% (MANUAL) 71 % (42-75)
[2020-04-20 07:14] LABS: <PLATELET ESTIMATE> INCREASED; <PLT MORPHOLOGY> NORMAL PLT MORPH; ECHINOCYTES 1+; HOWELL-JOLLY BODIES 1+; TEAR DROPS 1+
[2020-04-20 07:18] VITALS: BP 91/55
[2020-04-20] MEDS: SEVELAMER CARBONATE 800MG TAB PO SCH ×3 (08:00→16:04)
[2020-04-20] MEDS: PENICILLIN VK 500MG TABLET PO SCH ×2 (08:34→20:48)
[2020-04-20] MEDS: PANTOPRAZOLE 40MG TABLET PO SCH (08:35)
[2020-04-20] MEDS: CALCITRIOL 0.25 MCG CAPSULE PO SCH (08:35)
[2020-04-20] MEDS: MIRTAZAPINE 15 MG TABLET PO SCH (08:35)
[2020-04-20] MEDS: SODIUM BICARBONATE 650 MG TABLET PO SCH ×2 (08:35→20:48)
[2020-04-20] MEDS: ACETAMINOPHEN 325 MG TABLET PO PRN ×2 (08:36→17:43)
[2020-04-20] MEDS: ASPIRIN 81 MG TABLET CHEW PO SCH (08:36)
[2020-04-20] MEDS: ESCITALOPRAM 10MG TABLET PO SCH (08:37)
[2020-04-20] MEDS: METOPROLOL TARTRATE 25 MG TAB PO SCH ×2 (08:37→20:48)
[2020-04-20] MEDS: GENTAMICIN CRM 0.1%, 30GM TP SCH (08:38)
[2020-04-20] MEDS: TORSEMIDE 20 MG TABLET PO SCH (08:39)
[2020-04-20] MEDS ORDERED: SODIUM CHLORIDE 0.9%, 250ML IVBOLUS ONE (11:00)
[2020-04-20 13:12] VITALS: BP 99/65
[2020-04-20] MEDS: MIDODRINE 5 MG TABLET PO SCH ×2 (16:05→20:48)
[2020-04-20 19:18] VITALS: BP 97/55
[2020-04-21 01:36] VITALS: BP 98/60
[2020-04-21] MEDS: LEVOTHYROXINE 75 MCG TABLET PO SCH (05:42)
[2020-04-21] MEDS: SEVELAMER CARBONATE 800MG TAB PO SCH ×2 (08:00→13:20)
[2020-04-21 09:00] VITALS: BP 103/69
[2020-04-21 09:37] LABS: ALBUMIN 3.2 g/dL (3.4-5.0); ANION GAP 13 mmol/L (5-15); CALCIUM 7.9 mg/dL (8.5-10.1); CHLORIDE 102 mmol/L (98-107); CREATININE 7.58 mg/dL (0.7-1.3)
[2020-04-21] MEDS ORDERED: LEVO75TA PO (11:00)
[2020-04-21] MEDS ORDERED: SODI650T PO (11:00)
[2020-04-21] MEDS ORDERED: PENI500T PO (11:00)
[2020-04-21] MEDS ORDERED: SEVE800T8 PO (11:00)
[2020-04-21] MEDS ORDERED: CALC0.25 PO (11:00)
[2020-04-21] MEDS ORDERED: MIDO10TA PO (11:00)
[2020-04-21] MEDS ORDERED: ASPI-515 PO (11:00)
[2020-04-21] MEDS ORDERED: GENT15CR6 TP (11:00)
[2020-04-21] MEDS: HEPARIN 5,000 UNITS/ML, 1ML SQ SCH (13:16)
[2020-04-21 13:17] VITALS: BP 116/75
[2020-04-21] MEDS: PENICILLIN VK 500MG TABLET PO SCH (13:19)
[2020-04-21] MEDS: SODIUM BICARBONATE 650 MG TABLET PO SCH (13:19)
[2020-04-21] MEDS: PANTOPRAZOLE 40MG TABLET PO SCH (13:19)
[2020-04-21] MEDS: ASPIRIN 81 MG TABLET CHEW PO SCH (13:19)
[2020-04-21] MEDS: CALCITRIOL 0.25 MCG CAPSULE PO SCH (13:19)
[2020-04-21] MEDS: MIRTAZAPINE 15 MG TABLET PO SCH (13:20)
[2020-04-21] MEDS: METOPROLOL TARTRATE 25 MG TAB PO SCH (13:20)
[2020-04-21] MEDS: ESCITALOPRAM 10MG TABLET PO SCH (13:20)
[2020-04-21] MEDS: GENTAMICIN CRM 0.1%, 30GM TP SCH (13:20)
[2020-04-21] MEDS ORDERED: MIDODRINE 5 MG TABLET ONE (13:23)
[2020-04-21 14:38] LABS: QUANTIFERON TB Ag1-NIL 0.41 (0.000-0.000)
[2020-04-21] MEDS ORDERED: MIDODRINE 5 MG TABLET PO SCH (16:00)
== END 2020-04-21 15:00 | disposition home or self-care (01) | DRG 710 ==
LOC: ED 03:18 → EDIP 03:26 → 4NW 04:34 → 5SO 04-11 13:46 → DCLOUNGE 04-21 14:51
PROVIDERS: ADMIT Family Medicine; ATTEND Internal Medicine
PROC: 3E1M39Z Irrigation of Peritoneal Cavity using Dialysate, Percutaneous Approach (ICD-10-PCS; 2020-04-05)
PROC: 3E1M39Z Irrigation of Peritoneal Cavity using Dialysate, Percutaneous Approach (ICD-10-PCS; 2020-04-06)
PROC: 3E1M39Z Irrigation of Peritoneal Cavity using Dialysate, Percutaneous Approach (ICD-10-PCS; 2020-04-07)
PROC: 3E1M39Z Irrigation of Peritoneal Cavity using Dialysate, Percutaneous Approach (ICD-10-PCS; 2020-04-08)
PROC: 3E1M39Z Irrigation of Peritoneal Cavity using Dialysate, Percutaneous Approach (ICD-10-PCS; 2020-04-09)
PROC: 3E1M39Z Irrigation of Peritoneal Cavity using Dialysate, Percutaneous Approach (ICD-10-PCS; 2020-04-10)
PROC: 3E1M39Z Irrigation of Peritoneal Cavity using Dialysate, Percutaneous Approach (ICD-10-PCS; 2020-04-11)
PROC: 3E1M39Z Irrigation of Peritoneal Cavity using Dialysate, Percutaneous Approach (ICD-10-PCS; 2020-04-12)
PROC: 3E1M39Z Irrigation of Peritoneal Cavity using Dialysate, Percutaneous Approach (ICD-10-PCS; 2020-04-13)
PROC: 07DR3ZX Extraction of Iliac Bone Marrow, Percutaneous Approach, Diagnostic (ICD-10-PCS; 2020-04-13)
PROC: 0WPG43Z Removal of Infusion Device from Peritoneal Cavity, Percutaneous Endoscopic Approach (ICD-10-PCS; principal; 2020-04-15 09:30)
PROC: 0WHG43Z Insertion of Infusion Device into Peritoneal Cavity, Percutaneous Endoscopic Approach (ICD-10-PCS; 2020-04-15 09:30)
DX: A41.9 Sepsis, unspecified organism (principal); D50.9 Iron deficiency anemia, unspecified; D63.1 Anemia in chronic kidney disease; D75.89 Other specified diseases of blood and blood-forming organs; D84.9 Immunodeficiency, unspecified; E03.9 Hypothyroidism, unspecified; E83.42 Hypomagnesemia; E83.51 Hypocalcemia; E87.2 Acidosis; E87.6 Hypokalemia; E88.09 Other disorders of plasma-protein metabolism, not elsewhere classified; F12.90 Cannabis use, unspecified, uncomplicated; I13.11 Hypertensive heart and chronic kidney disease without heart failure, with stage 5 chronic kidney disease, or end stage renal disease; K21.9 Gastro-esophageal reflux disease without esophagitis; K59.00 Constipation, unspecified; K64.9 Unspecified hemorrhoids; K66.0 Peritoneal adhesions (postprocedural) (postinfection); K74.60 Unspecified cirrhosis of liver; N17.9 Acute kidney failure, unspecified; N18.6 End stage renal disease; N25.81 Secondary hyperparathyroidism of renal origin; Z20.828 Contact with and (suspected) exposure to other viral communicable diseases; L27.0 Generalized skin eruption due to drugs and medicaments taken internally; T50.995A Adverse effect of other drugs, medicaments and biological substances, initial encounter; Y92.238 Other place in hospital as the place of occurrence of the external cause; T85.611A Breakdown (mechanical) of intraperitoneal dialysis catheter, initial encounter; Y81.2 Prosthetic and other implants, materials and accessory general- and plastic-surgery devices associated with adverse incidents; Z80.3 Family history of malignant neoplasm of breast; Z82.49 Family history of ischemic heart disease and other diseases of the circulatory system; Z83.3 Family history of diabetes mellitus; Z87.891 Personal history of nicotine dependence; Z90.81 Acquired absence of spleen; Z91.041 Radiographic dye allergy status; Z94.4 Liver transplant status; Z99.2 Dependence on renal dialysis
CPT/HCPCS: J3490; S0020; 36415; 38222; 70551; 71045; 71250; 74018; 74176; 76700; 76705; 77012; 78582; 78831; 80048; 80053; 80061; 80069; 81001; 82306; 82330; 82607; 82728; 82962; 83540; 83550; 83605; 83615; 83735; 83880; 83970; 84075; 84100; 84145; 84439; 84443; 84484; 85025; 85060; 85097; 85302; 85303; 85305; 85306; 85651; 86140; 86147; 86480; 86704; 86706; 87040; 87070; 87075; 87081; 87102; 87205; 87324; 87340; 87400; 87635; 87806; 87880; 88237; 88264; 88280; 88305; 88311; 88313; 90935; 90945; 93005; 93306; 93880; 93990; 96374; 99156; 99157; 99285; G0378; J0171; J0610; J0690; J0882; J1100; J1170; J1644; J1756; J2250; J2405; J2543; J2704; J2710; J3010; A9540; A9547; A9558; C9898; G0475; J0330; J1200; J2270; J2310; J2370; J2920; J3475; J7030; J7050; J7120; J7517; Q0163